=== PATIENT | female | born 1955 | race Caucasian/White ===

== ENCOUNTER → 2017-06-28 | Outpatient (CLI) | payer OTHER ==
[~2017-06-28] MED LIST: IBUP200C8 PO
== END | disposition home or self-care (01) ==
LOC: CFH 08:48
PROVIDERS: ATTEND Obstetrics & Gynecology Maternal & Fetal Medicine
DX: Z12.31 Encounter for screening mammogram for malignant neoplasm of breast (principal); N64.89 Other specified disorders of breast
CPT/HCPCS: 77067

== ENCOUNTER → 2017-06-29 | Outpatient (CLI) | payer OTHER ==
[~2017-06-29] MED LIST changes: +LEG CRAMPS PO
[2017-06-29 12:31] LABS: BASOPHILS # (AUTO) 0.03 x10^3/uL (0-0.1); BASOPHILS % (AUTO) 0 % (0-1); EOSINOPHILS % (AUTO) 4 % (1-7); LYMPHOCYTES # (AUTO) 1.77 x10^3/uL (1-3.4); LYMPHOCYTES % (AUTO) 22 % (22-44); MD NO; MEAN CORPUSCULAR HEMOGLOBIN 24.3 pg (27.0-34.8); MEAN CORPUSCULAR HGB CONC 31.5 g/dL (32.4-35.8); MONOCYTES # (AUTO) 0.46 x10^3/uL (0.2-0.8); MONOCYTES % (AUTO) 6 % (2-9); NEUTROPHILS # (AUTO) 5.52 x10^3/uL (1.8-6.8); NEUTROPHILS % (AUTO) 68 % (42-75); PLATELET COUNT 250 x10^3/uL (130-400); RED BLOOD COUNT 4.71 x10^6/uL (3.82-5.3); RED CELL DISTRIBUTION WIDTH 17.5 % (9.6-15.2)
[2017-06-29 12:42] LABS: ALANINE AMINOTRANSFERASE 27 U/L (12-78); ALBUMIN 3.3 g/dL (3.4-5.0); ANION GAP 5 mmol/L (5-15); CHLORIDE 107 mmol/L (98-107); CREATININE 0.72 mg/dL (0.55-1.02)
[2017-06-29 12:45] LABS: ALKALINE PHOSPHATASE 70 U/L (45-117); BILIRUBIN,TOTAL 0.4 mg/dL (0.2-1.0)
[2017-06-29 12:52] LABS: INTERNATIONAL NORMALIZED RATIO 0.94 (0.93-1.1); PROTHROMBIN TIME 9.7 Seconds (9.6-11.5)
== END | disposition home or self-care (01) ==
LOC: STAR 11:29
PROVIDERS: ATTEND Specialist
DX: Z01.818 Encounter for other preprocedural examination (principal); C54.1 Malignant neoplasm of endometrium
CPT/HCPCS: 36415; 71046; 80053; 85025; 85610; 85730; 93005

== ENCOUNTER 2017-07-03 06:20 | Day surgery (SDC) | payer OTHER ==
[~2017-07-03] VITALS: Ht 170.2 cm; Wt 134.0 kg
[~2017-07-03 06:20] MED LIST changes: -LEG CRAMPS PO
[2017-07-03] MEDS ORDERED: EPINEPHRINE 1 MG/ML, 1ML ONE (06:54)
[2017-07-03] MEDS ORDERED: INDOCYANINE GREEN 25 MG VIAL ONE ×2 (06:54→08:29)
[2017-07-03] MEDS ORDERED: HEPARIN 1,000 UNITS/ML, 10ML ONE (06:54)
[2017-07-03] MEDS ORDERED: BUPIVACAINE/PF 0.25% ONE (06:54)
[2017-07-03] MEDS ORDERED: THROMBIN 5,000 UNIT VIAL TP ONE (06:55)
[2017-07-03] MEDS ORDERED: LIDOCAINE-MPF 1%, 2ML ONE (06:58)
[2017-07-03 07:07] VITALS: BP 186/84
[2017-07-03] MEDS ORDERED: LEG CRAMPS PO (07:11)
[2017-07-03] MEDS ORDERED: LACTATED RINGERS 1,000 ML IV SCH (07:12)
[2017-07-03] MEDS ORDERED: MIDAZOLAM 1 MG/ML, 2ML ONE (07:18)
[2017-07-03] MEDS ORDERED: FENTANYL PF 250 MCG/5ML ONE (07:18)
[2017-07-03] MEDS ORDERED: LIDOCAINE 1%, 2ML SQ PRN (07:30)
[2017-07-03] MEDS ORDERED: CEFAZOLIN 1,000 MG ONE ×2 (07:34→08:44)
[2017-07-03] MEDS ORDERED: NEOSTIGMINE 1 MG/ML, 10ML ONE (08:44)
[2017-07-03] MEDS ORDERED: ROCURONIUM 10 MG/ML,10ML ONE (08:44)
[2017-07-03] MEDS ORDERED: PROPOFOL 10 MG/ML, 20ML ONE (08:44)
[2017-07-03] MEDS ORDERED: SUCCINYLCHOLINE 20 MG/ML, 10ML ONE (08:44)
[2017-07-03] MEDS ORDERED: GLYCOPYRROLATE 0.2MG/1ML, 5ML ONE (08:44)
[2017-07-03] MEDS ORDERED: ONDANSETRON 2MG/ML, 2ML ONE (08:44)
[2017-07-03] MEDS ORDERED: DEXAMETHASONE 4 MG/ML, 1ML ONE (08:44)
[2017-07-03] MEDS ORDERED: HYDROmorphone 2 MG/ML, 1ML ONE (09:34)
[2017-07-03] MEDS ORDERED: DIAZEPAM 5 MG/ML, 2ML IVPush PRN (10:30)
[2017-07-03] MEDS ORDERED: PROMETHAZINE 25 MG/ML, 1ML IV PRN (10:30)
[2017-07-03] MEDS ORDERED: hydrALAzine 20 MG/ML, 1ML IV PRN (10:30)
[2017-07-03] MEDS ORDERED: OXYcodone 5 MG/5 ML ORAL.SOL UDC PO PRN (10:30)
[2017-07-03] MEDS ORDERED: MEPERIDINE/PF 25MG/0.5ML IVPush PRN (10:30)
[2017-07-03] MEDS ORDERED: ONDANSETRON 2MG/ML, 2ML IVPush PRN (10:30)
[2017-07-03] MEDS ORDERED: METOPROLOL 1 MG/ML, 5ML IV PRN (10:30)
[2017-07-03] MEDS ORDERED: MIDAZOLAM 1 MG/ML, 2ML IV PRN (10:30)
[2017-07-03] MEDS ORDERED: HYDROcodone/APAP 7.5-325MG/15ML UDC PO PRN (10:30)
[2017-07-03] MEDS ORDERED: LABETALOL 5MG/ML, 20ML IV PRN (10:30)
[2017-07-03] MEDS ORDERED: ACETAMINOPHEN 325 MG TABLET PO PRN (10:30)
[2017-07-03] MEDS ORDERED: ALBUTEROL SULFATE 2.5 MG/3 ML NPPB PRN (10:30)
[2017-07-03] MEDS ORDERED: HYDROmorphone 1 MG/ML, 1ML IV PRN (10:30)
[2017-07-03] MEDS ORDERED: PROMETHAZINE 12.5 MG SUPP PR PRN (10:30)
[2017-07-03] MEDS ORDERED: EPHEDRINE 50 MG/ML, 1ML IVPush PRN (10:30)
[2017-07-03] MEDS ORDERED: ALBUTEROL/IPRATROPIUM 2.5MG/0.5MG, 3 ML NPPB PRN (10:30)
[2017-07-03] MEDS ORDERED: FENTANYL PF 100 MCG/2ML ONE (12:04)
[2017-07-03] MEDS ORDERED: ACETAMINOPHEN 650 MG/20.3 ML UDC ONE (12:04)
[2017-07-03] MEDS ORDERED: OXYcodone 5 MG/5 ML ORAL.SOL UDC ONE (12:04)
[2017-07-03] MEDS: FENTANYL PF 100 MCG/2ML IV PRN ×4 (12:10→12:39)
[2017-07-03] MEDS ORDERED: KETOROLAC 30 MG/1 ML ONE (14:00)
[2017-07-03] MEDS ORDERED: KETOROLAC 30 MG/1 ML IVPush ONE (14:00)
[2017-07-03] MEDS ORDERED: OXYcodone/APAP 7.5/325MG TABLET PO ONE (14:00)
== END 2017-07-03 18:10 | disposition home or self-care (01) ==
LOC: OUT 06:20
PROVIDERS: ATTEND Specialist
DX: C54.1 Malignant neoplasm of endometrium (principal); D25.9 Leiomyoma of uterus, unspecified; I10 Essential (primary) hypertension; N95.0 Postmenopausal bleeding; Z88.5 Allergy status to narcotic agent; Z88.0 Allergy status to penicillin
CPT/HCPCS: 36415; 38500; 38900; 58571; 74018; 86850; 86900; 86923; 88305; 88307; 88333; J0171; J0330; J0690; J1100; J1170; J1885; J2250; J2405; J2704; J2710; J3010; J3490; J7120; S2900; J1644

== ENCOUNTER → 2018-01-25 | Outpatient (CLI) | payer OTHER ==
[~2018-01-25] MED LIST changes: +LEG CRAMPS PO
== END | disposition home or self-care (01) ==
LOC: ROC 07:52
PROVIDERS: ATTEND Radiology Radiation Oncology
DX: C54.1 Malignant neoplasm of endometrium (principal)
CPT/HCPCS: 99212; G0463

== ENCOUNTER → 2018-03-28 | Outpatient (CLI) | payer OTHER ==
[~2018-03-28] MED LIST changes: +OMNIPAQUE 350 MG/ML, 150 ML BOTTLE ONE
== END | disposition home or self-care (01) ==
LOC: CFH 08:09
PROVIDERS: ATTEND Specialist
DX: K80.20 Calculus of gallbladder without cholecystitis without obstruction (principal); K57.90 Diverticulosis of intestine, part unspecified, without perforation or abscess without bleeding
CPT/HCPCS: 74177; Q9967

== ENCOUNTER 2018-04-30 18:42 | Day surgery (SDC) | payer OTHER ==
[~2018-04-30] VITALS: Ht 170.2 cm; Wt 128.9 kg
[~2018-04-30 18:42] MED LIST changes: -OMNIPAQUE 350 MG/ML, 150 ML BOTTLE ONE
[2018-04-30 19:46] LABS: BASOPHILS # (AUTO) 0.02 x10^3/uL (0-0.1); BASOPHILS % (AUTO) 0 % (0-1); EOSINOPHILS # (AUTO) 0.22 x10^3/uL (0-0.4); EOSINOPHILS % (AUTO) 3 % (1-7); LYMPHOCYTES # (AUTO) 1.63 x10^3/uL (1-3.4); LYMPHOCYTES % (AUTO) 24 % (22-44); MD NO; MEAN CORPUSCULAR HEMOGLOBIN 30.7 pg (27.0-34.8); MEAN CORPUSCULAR HGB CONC 34.3 g/dL (32.4-35.8); MEAN CORPUSCULAR VOLUME 89.4 fL (80-100); MEAN PLATELET VOLUME 8.1 fL (7.4-10.4); MONOCYTES # (AUTO) 0.49 x10^3/uL (0.2-0.8); MONOCYTES % (AUTO) 7 % (2-9); NEUTROPHILS # (AUTO) 4.55 x10^3/uL (1.8-6.8); NEUTROPHILS % (AUTO) 66 % (42-75); PLATELET COUNT 195 x10^3/uL (130-400); RED BLOOD COUNT 5.18 x10^6/uL (3.82-5.3); RED CELL DISTRIBUTION WIDTH 14.5 % (9.6-15.2)
--- NOTE | 2018-04-30 19:46 | NUR ---
pt ambulated to room from salbador, sera cup given by al torres
--- NOTE | 2018-04-30 19:48 | NUR ---
PT. AMBULATORY TO BR WITH SLOW BUT STEADY GAIT TO PROVIDE URINE SAMPLE. WARM JOHN AND GOWN PROVIDED.
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
[2018-04-30 19:52] LABS: ALANINE AMINOTRANSFERASE 27 U/L (12-78); ALBUMIN 3.8 g/dL (3.4-5.0); ANION GAP 7 mmol/L (5-15); CALCIUM 8.8 mg/dL (8.5-10.1); CHLORIDE 109 mmol/L (98-107); CREATININE 0.93 mg/dL (0.55-1.02)
[2018-04-30 19:55] LABS: ALKALINE PHOSPHATASE 77 U/L (45-117); BILIRUBIN,TOTAL 0.5 mg/dL (0.2-1.0); TOTAL PROTEIN 7.7 g/dL (6.4-8.2)
--- NOTE | 2018-04-30 20:14 | NUR ---
VS UPDATED. PT. DENIES NEEDS. AWARE OF NEED FOR UA STILL. UPDATED ON PLAN FOR CT.
--- NOTE | 2018-04-30 20:37 | NUR ---
PT. RETURN TO ROOM FROM CT AT THIS TIME.
--- NOTE | 2018-04-30 20:56 | NUR ---
PT. CHART UP FOR RECHECK BY MACKENZIE.
[2018-04-30] MEDS ORDERED: SODIUM CHLORIDE 0.9% 1,000 ML IV ONE (21:10)
--- NOTE | 2018-04-30 21:24 | NUR ---
DR. ANDRES WAS AT BS TO DISCUSS POC WITH PT.
--- NOTE | 2018-04-30 21:25 | NUR ---
IV ACCESS OBTAINED. PT. TO BE ADMIT AND HAVE SX TO REMOVE GALLBLADDER IN THE AM. PT. REQUESTING TO CALL [facility]OSS PRIOR TO IV PAIN MEDS.
[2018-04-30] MEDS ORDERED: SODIUM CHLORIDE FLUSH 10ML SYR IVF PRN (21:30)
[2018-04-30] MEDS ORDERED: MORPHINE SULFATE 4 MG/ML, 1ML IVPush PRN (21:30)
[2018-04-30] MEDS ORDERED: ONDANSETRON 2MG/ML, 2ML IVPush PRN (21:30)
[2018-04-30] MEDS ORDERED: ONDANSETRON 2MG/ML, 2ML ONE (21:34)
[2018-04-30] MEDS ORDERED: MORPHINE SULFATE 4 MG/ML, 1ML ONE (21:35)
--- NOTE | 2018-04-30 21:36 | NUR ---
RECEIVED REPORT FROM BRENDAN MAYES.
--- NOTE | 2018-04-30 21:44 | NUR ---
DR. BAKER AT BEDSIDE.
--- NOTE | 2018-04-30 22:18 | NUR ---
REPORT GIVEN TO AJ, RECEIVING RN. ALL QUESTIONS ANSWERED. AWAITING PT TRANSPORT.
[2018-04-30] MEDS ORDERED: DIPHENHYDRAMINE 50 MG/ML, 1ML IV PRN (23:00)
[2018-04-30] MEDS ORDERED: ENALAPRILAT 1.25 MG/ML, 2ML IV PRN (23:00)
[2018-04-30] MEDS ORDERED: hydrALAzine 20 MG/ML, 1ML IV PRN (23:00)
[2018-04-30] MEDS ORDERED: ONDANSETRON 2MG/ML, 2ML IV PRN (23:00)
[2018-04-30] MEDS ORDERED: DIPHENHYDRAMINE 25 MG CAPSULE PO PRN (23:00)
[2018-04-30] MEDS ORDERED: ACETAMINOPHEN 325 MG TABLET PO PRN (23:00)
[2018-04-30] MEDS ORDERED: ACETAMINOPHEN 650 MG SUPP PR PRN (23:00)
[2018-04-30] MEDS: ENOXAPARIN 40 MG/0.4 ML SQ SCH (23:28)
[2018-04-30] MEDS ORDERED: HYDROmorphone 2 MG/ML, 1ML IVPush PRN (23:30)
[2018-05-01 00:52] VITALS: BP 146/75
[2018-05-01] MEDS: HYDROcodone/APAP 5/325 TABLET PO PRN ×4 (01:50→21:05)
[2018-05-01 02:29] VITALS: BP 108/69
[2018-05-01] MEDS: D5%-0.45NACL+KCL 20MEQ 1,000 ML IV SCH ×2 (06:04→18:28)
[2018-05-01 07:08] VITALS: BP 137/63
[2018-05-01] MEDS ORDERED: BUPIVACAINE/PF-EPI 0.5% 1:200K ONE (13:38)
[2018-05-01 14:12] VITALS: BP 134/76
[2018-05-01] MEDS ORDERED: FENTANYL PF 250 MCG/5ML ONE (14:16)
[2018-05-01] MEDS ORDERED: ACETAMINOPHEN 325 MG TABLET PO PRN (14:30)
[2018-05-01] MEDS ORDERED: PROMETHAZINE 25 MG/ML, 1ML IV PRN (14:30)
[2018-05-01] MEDS ORDERED: OXYcodone 5 MG/5 ML ORAL.SOL UDC PO PRN (14:30)
[2018-05-01] MEDS ORDERED: MEPERIDINE/PF 25MG/0.5ML IVPush PRN (14:30)
[2018-05-01] MEDS ORDERED: HYDROmorphone 2 MG/ML, 1ML IVPush PRN (14:30)
[2018-05-01] MEDS ORDERED: DIAZEPAM 5 MG/ML, 2ML IVPush PRN (14:30)
[2018-05-01] MEDS ORDERED: ONDANSETRON ODT 8 MG PO PRN (14:30)
[2018-05-01] MEDS ORDERED: ONDANSETRON 2MG/ML, 2ML IV PRN (14:30)
[2018-05-01] MEDS ORDERED: DEXAMETHASONE 4 MG/ML, 1ML ONE (14:51)
[2018-05-01] MEDS ORDERED: ROCURONIUM 10 MG/ML,10ML ONE (14:51)
[2018-05-01] MEDS ORDERED: ONDANSETRON 2MG/ML, 2ML ONE (14:51)
[2018-05-01] MEDS ORDERED: CEFAZOLIN 1,000 MG ONE (14:51)
[2018-05-01] MEDS ORDERED: SUCCINYLCHOLINE 20 MG/ML, 10ML ONE (14:51)
[2018-05-01] MEDS ORDERED: PROPOFOL 10 MG/ML, 20ML ONE (14:51)
[2018-05-01] MEDS ORDERED: GLYCOPYRROLATE 0.2MG/1ML, 5ML ONE (14:51)
[2018-05-01] MEDS ORDERED: SUGAMMADEX 200 MG/2 ML IVPush ONE (15:09)
[2018-05-01] MEDS ORDERED: LABETALOL 20 MG/4 ML ONE (15:41)
[2018-05-01] MEDS: LABETALOL 5MG/ML, 20ML IV PRN ×2 (15:42→15:50)
[2018-05-01] MEDS: FENTANYL PF 100 MCG/2ML IV PRN ×4 (15:45→16:30)
[2018-05-01] MEDS ORDERED: FENTANYL PF 100 MCG/2ML ONE ×2 (15:49→16:45)
[2018-05-01] MEDS ORDERED: OXYcodone 5 MG/5 ML ORAL.SOL UDC ONE (15:49)
[2018-05-01] MEDS ORDERED: hydrALAzine 20 MG/ML, 1ML ONE (16:08)
[2018-05-01 19:06] LABS: MICROSCOPIC NOT IND
[2018-05-01 19:10] LABS: CULTURE INDICATED? NO
[2018-05-01 20:00] VITALS: BP 136/74
[2018-05-01] MEDS: ENOXAPARIN 40 MG/0.4 ML SQ SCH (22:33)
[2018-05-02 00:15] VITALS: BP 130/79
[2018-05-02] MEDS: D5%-0.45NACL+KCL 20MEQ 1,000 ML IV SCH ×2 (03:30→11:39)
[2018-05-02 07:18] VITALS: BP 129/71
[2018-05-02] MEDS ORDERED: HYDR-3240 PO (10:16)
[2018-05-02 12:05] VITALS: BP 150/73
== END 2018-05-02 18:07 | disposition home or self-care (01) ==
LOC: ED 20:29 → EDIP 21:10 → UNDOADMIN 21:10 → SDC 21:10 → 4NOR 22:29 → EDIP 22:29 → SDC 05-02 18:07 → UNDODISIN 05-02 18:33
PROVIDERS: ATTEND Surgery
DX: K80.10 Calculus of gallbladder with chronic cholecystitis without obstruction (principal); E66.01 Morbid (severe) obesity due to excess calories; Z72.0 Tobacco use; Z68.41 Body mass index [BMI] 40.0-44.9, adult; Z82.49 Family history of ischemic heart disease and other diseases of the circulatory system; Z85.42 Personal history of malignant neoplasm of other parts of uterus; Z85.43 Personal history of malignant neoplasm of ovary; Z90.710 Acquired absence of both cervix and uterus; Z88.0 Allergy status to penicillin; Z88.5 Allergy status to narcotic agent
CPT/HCPCS: 36415; 47562; 74176; 76700; 80053; 81003; 83690; 85025; 88304; 90656; 93005; 96361; 96374; 99285; J0330; J0360; J0690; J1100; J1650; J2405; J2704; J3010; J3480; J3490; J7030; G0378

== ENCOUNTER 2018-05-14 14:02 | Emergency (ER) | payer OTHER ==
[~2018-05-14] VITALS: Ht 170.2 cm; Wt 130.7 kg
[~2018-05-14 14:02] MED LIST changes: +HYDR-3240 PO
[2018-05-14 14:42] LABS: BASOPHILS # (AUTO) 0.01 x10^3/uL (0-0.1); BASOPHILS % (AUTO) 0 % (0-1); EOSINOPHILS # (AUTO) 0.23 x10^3/uL (0-0.4); EOSINOPHILS % (AUTO) 3 % (1-7); LYMPHOCYTES # (AUTO) 1.17 x10^3/uL (1-3.4); LYMPHOCYTES % (AUTO) 15 % (22-44); MD NO; MEAN CORPUSCULAR VOLUME 90.9 fL (80-100); MEAN PLATELET VOLUME 8.7 fL (7.4-10.4); MONOCYTES # (AUTO) 0.35 x10^3/uL (0.2-0.8); MONOCYTES % (AUTO) 4 % (2-9); NEUTROPHILS % (AUTO) 78 % (42-75); PLATELET COUNT 194 x10^3/uL (130-400); RED BLOOD COUNT 4.96 x10^6/uL (3.82-5.3); RED CELL DISTRIBUTION WIDTH 14.6 % (9.6-15.2)
[2018-05-14 14:56] LABS: ALANINE AMINOTRANSFERASE 28 U/L (12-78); ALBUMIN 3.6 g/dL (3.4-5.0); ANION GAP 7 mmol/L (5-15); CALCIUM 8.4 mg/dL (8.5-10.1); CHLORIDE 111 mmol/L (98-107); CREATININE 1.03 mg/dL (0.55-1.02)
[2018-05-14 14:58] LABS: ALKALINE PHOSPHATASE 77 U/L (45-117); BILIRUBIN,TOTAL 0.5 mg/dL (0.2-1.0); TOTAL PROTEIN 6.7 g/dL (6.4-8.2)
[2018-05-14 16:14] LABS: MICROSCOPIC AUTO
[2018-05-14 16:17] LABS: CULTURE INDICATED? YES
[2018-05-14 16:22] VITALS: BP 155/80
--- NOTE | 2018-05-14 16:22 | NUR ---
DR BILLS UPDATING PT ON POC
== END 2018-05-14 16:44 | disposition home or self-care (01) ==
LOC: ED 16:30
DX: N30.00 Acute cystitis without hematuria (principal); Z90.89 Acquired absence of other organs; Z90.710 Acquired absence of both cervix and uterus; Z85.43 Personal history of malignant neoplasm of ovary
CPT/HCPCS: 36415; 76700; 80053; 81001; 83690; 85025; 87086; 99284

== ENCOUNTER → 2018-07-19 | Outpatient (CLI) | payer OTHER | END | disposition home or self-care (01) | LOC: ROC 07:58 | PROVIDERS: ATTEND Radiology Radiation Oncology | DX: Z08 Encounter for follow-up examination after completed treatment for malignant neoplasm (principal); C54.1 Malignant neoplasm of endometrium | CPT/HCPCS: 99212; G0463 ==

== ENCOUNTER 2019-06-18 22:39 | Emergency (ER) | payer OTHER ==
[~2019-06-18] VITALS: Ht 170.2 cm; Wt 136.2 kg
[2019-06-18] MEDS ORDERED: ONDANSETRON 2MG/ML, 2ML IVPush ONE (23:00)
[2019-06-18] MEDS ORDERED: MORPHINE SULFATE 4 MG/ML, 1ML IVPush PRN (23:00)
[2019-06-18] MEDS ORDERED: MORPHINE SULFATE 4 MG/ML, 1ML ONE (23:24)
[2019-06-18] MEDS ORDERED: ONDANSETRON 2MG/ML, 2ML ONE (23:24)
--- NOTE | 2019-06-18 23:42 | NUR ---
Patient presents to ER c/o left side abd pain, N/V/D x1 week. Patient states tonight she also experienced an extreme RUCKER and photosensitivity. She is not currently experiencing the RUCKER. Her last bout of diarrhea and vomiting was earlier tonight around 1999. Patient denies fevers. Patient is in NAD. Respirations even and unlabored.
[2019-06-18 23:49] LABS: BASOPHILS # (AUTO) 0.02 x10^3/uL (0-0.1); BASOPHILS % (AUTO) 0 % (0-1); EOSINOPHILS # (AUTO) 0.25 x10^3/uL (0-0.4); EOSINOPHILS % (AUTO) 4 % (1-7); LYMPHOCYTES # (AUTO) 1.52 x10^3/uL (1-3.4); LYMPHOCYTES % (AUTO) 21 % (22-44); MD NO; MEAN CORPUSCULAR HEMOGLOBIN 30.7 pg (27.0-34.8); MEAN CORPUSCULAR HGB CONC 33.6 g/dL (32.4-35.8); MEAN CORPUSCULAR VOLUME 91.2 fL (80-100); MEAN PLATELET VOLUME 8.6 fL (7.4-10.4); MONOCYTES # (AUTO) 0.48 x10^3/uL (0.2-0.8); MONOCYTES % (AUTO) 7 % (2-9); NEUTROPHILS # (AUTO) 4.86 x10^3/uL (1.8-6.8); NEUTROPHILS % (AUTO) 68 % (42-75); PLATELET COUNT 195 x10^3/uL (130-400); RED BLOOD COUNT 5.13 x10^6/uL (3.82-5.3); RED CELL DISTRIBUTION WIDTH 14.2 % (9.6-15.2)
[2019-06-18 23:51] LABS: MICROSCOPIC INDICATED
[2019-06-18 23:52] LABS: CULTURE INDICATED? YES
[2019-06-18 23:57] LABS: ALANINE AMINOTRANSFERASE 28 U/L (12-78); ALBUMIN 3.7 g/dL (3.4-5.0); ANION GAP 8 mmol/L (5-15); CALCIUM 8.9 mg/dL (8.5-10.1); CHLORIDE 108 mmol/L (98-107); CREATININE 0.88 mg/dL (0.55-1.02)
[2019-06-19] LABS: ALKALINE PHOSPHATASE 84 U/L (45-117); BILIRUBIN,TOTAL 0.5 mg/dL (0.2-1.0); TOTAL PROTEIN 7.6 g/dL (6.4-8.2)
[2019-06-19] MEDS ORDERED: OMNIPAQUE 350 MG/ML, 100ML BOTTLE ONE (00:15)
--- NOTE | 2019-06-19 00:16 | NUR ---
Patient in CT.
--- NOTE | 2019-06-19 00:55 | NUR ---
Pt report from Aury melendez. This rn to assume care of pt. Pt tbdc. Awaiting d/c instructions.
[2019-06-19 01:01] VITALS: BP 160/79
== END 2019-06-19 01:03 | disposition home or self-care (01) ==
LOC: ED 06-19 00:47
DX: R10.32 Left lower quadrant pain (principal); R51 Headache; F17.200 Nicotine dependence, unspecified, uncomplicated; Z90.49 Acquired absence of other specified parts of digestive tract; Z90.710 Acquired absence of both cervix and uterus
CPT/HCPCS: 36415; 74177; 80053; 81001; 83690; 85025; 87086; 96374; 96375; 99284; J2270; J2405; Q9967

== ENCOUNTER → 2019-07-19 | Outpatient (CLI) | payer OTHER | END | disposition home or self-care (01) | LOC: ROC 07:00 | PROVIDERS: ATTEND Radiology Radiation Oncology | DX: C54.1 Malignant neoplasm of endometrium (principal) | CPT/HCPCS: 99212; G0463 ==

== ENCOUNTER 2019-10-25 08:22 | Outpatient (CLI) | payer OTHER ==
[~2019-10-25 08:22] MED LIST changes: +HYDR-3343 PO; +LEVO750T26 PO
== END 2019-10-25 23:59 | disposition home or self-care (01) ==
LOC: ROC 08:22
PROVIDERS: ATTEND Radiology Radiation Oncology
DX: Z08 Encounter for follow-up examination after completed treatment for malignant neoplasm (principal); C54.1 Malignant neoplasm of endometrium; E66.9 Obesity, unspecified; I10 Essential (primary) hypertension; K57.90 Diverticulosis of intestine, part unspecified, without perforation or abscess without bleeding; Z90.710 Acquired absence of both cervix and uterus; Z90.49 Acquired absence of other specified parts of digestive tract; Z79.899 Other long term (current) drug therapy; Z87.891 Personal history of nicotine dependence; Z85.42 Personal history of malignant neoplasm of other parts of uterus
CPT/HCPCS: 99212; G0463

== ENCOUNTER 2019-11-05 11:36 | Day surgery (SDC) | payer OTHER ==
[~2019-11-05] VITALS: Ht 170.2 cm; Wt 121.5 kg
[2019-11-05] MEDS ORDERED: LACTATED RINGERS 1,000 ML IV SCH (12:09)
[2019-11-05] MEDS ORDERED: GABA300C PO (12:13)
[2019-11-05] MEDS ORDERED: HYDR-3240 PO (12:13)
[2019-11-05] MEDS ORDERED: HYDR-3343 PO (12:13)
[2019-11-05] MEDS ORDERED: NAPR220C2 PO (12:13)
[2019-11-05 12:15] VITALS: BP 163/112
[2019-11-05] MEDS ORDERED: PLEASE ENTER HEIGHT AND WEIGHT MC SCH (12:30)
[2019-11-05] MEDS ORDERED: CHLORHEXIDINE 15 ML UDC MM ONE (12:30)
[2019-11-05] MEDS ORDERED: PROPOFOL 10 MG/ML, 20ML ONE (13:20)
[2019-11-05] MEDS ORDERED: SUCCINYLCHOLINE 20 MG/ML, 10ML ONE (13:20)
[2019-11-05] MEDS ORDERED: ROCURONIUM 10MG/ML,5ML ONE (13:20)
[2019-11-05] MEDS ORDERED: LIDOCAINE-MPF 2% ,5ML ONE (13:40)
[2019-11-05] MEDS ORDERED: CEFAZOLIN 1,000 MG ONE (13:40)
[2019-11-05] MEDS ORDERED: MIDAZOLAM 1 MG/ML, 2ML ONE (13:41)
[2019-11-05] MEDS ORDERED: FENTANYL PF 100 MCG/2ML ONE ×2 (13:42→16:50)
[2019-11-05] MEDS ORDERED: CIPROFLOXACIN/PMX 400MG/200ML 200 ML ONE (15:04)
[2019-11-05] MEDS ORDERED: ACETAMINOPHEN 325 MG TABLET PO PRN (15:30)
[2019-11-05] MEDS ORDERED: HYDROmorphone 1 MG/ML, 1ML INJ IVPush PRN (15:30)
[2019-11-05] MEDS ORDERED: FENTANYL PF 100 MCG/2ML IV PRN (15:30)
[2019-11-05] MEDS ORDERED: SUGAMMADEX 200 MG/2 ML IVPush ONE (16:05)
[2019-11-05] MEDS ORDERED: ONDANSETRON 2MG/ML, 2ML ONE (16:41)
[2019-11-05] MEDS ORDERED: HYDROmorphone 1 MG/ML, 1ML INJ ONE (16:54)
[2019-11-05] MEDS ORDERED: ONDANSETRON 2MG/ML, 2ML IVPush PRN (17:00)
[2019-11-05] MEDS ORDERED: KETOROLAC 30 MG/1 ML ONE (17:34)
[2019-11-05] MEDS ORDERED: morphine SULFATE 10 MG/ML, 1ML ONE (17:49)
[2019-11-05] MEDS ORDERED: morphine SULFATE 10 MG/ML, 1ML IV PRN (18:00)
[2019-11-05] MEDS ORDERED: KETOROLAC 30 MG/1 ML IV PRN (18:00)
[2019-11-05] MEDS ORDERED: ONDANSETRON 2MG/ML, 2ML IV PRN (18:00)
== END 2019-11-05 18:35 | disposition home or self-care (01) ==
LOC: OUT 11:36
PROVIDERS: ATTEND Urology
DX: N20.2 Calculus of kidney with calculus of ureter (principal); Z11.59 Encounter for screening for other viral diseases; T83.192A Other mechanical complication of indwelling ureteral stent, initial encounter; I10 Essential (primary) hypertension; Z79.899 Other long term (current) drug therapy; Z85.42 Personal history of malignant neoplasm of other parts of uterus; Z87.440 Personal history of urinary (tract) infections; Z88.0 Allergy status to penicillin; Z88.5 Allergy status to narcotic agent; Z88.8 Allergy status to other drugs, medicaments and biological substances; Y83.8 Other surgical procedures as the cause of abnormal reaction of the patient, or of later complication, without mention of misadventure at the time of the procedure
CPT/HCPCS: 36415; 52353; 74018; 87635; J0330; J0690; J0744; J1885; J2250; J2270; J2405; J2704; J3010; J7120; 76000

== ENCOUNTER 2019-11-12 06:51 | Day surgery (SDC) | payer OTHER ==
[~2019-11-12] VITALS: Ht 170.2 cm; Wt 121.0 kg
[~2019-11-12 06:51] MED LIST changes: +GABA300C PO; +NAPR220C2 PO
[2019-11-12 09:01] VITALS: BP 162/83
[2019-11-12] MEDS ORDERED: CHLORHEXIDINE 15 ML UDC MM STA (09:06)
[2019-11-12] MEDS ORDERED: SILVER SULF. CRM 1% , 25GM ONE (09:59)
[2019-11-12] MEDS ORDERED: EPINEPHRINE 1 MG/ML, 1ML ONE (09:59)
[2019-11-12] MEDS ORDERED: BUPIVACAINE/PF 0.25% ONE (09:59)
[2019-11-12] MEDS ORDERED: LACTATED RINGERS 1,000 ML IV SCH (10:00)
[2019-11-12 10:27] LABS: INTERNATIONAL NORMALIZED RATIO 0.96 (0.93-1.1); PROTHROMBIN TIME 10.2 Seconds (9.6-11.5)
[2019-11-12] MEDS ORDERED: CEFOTETAN PMX 2GM/50ML 50 ML IV ONE (10:30)
[2019-11-12] MEDS ORDERED: MIDAZOLAM 1 MG/ML, 2ML ONE (11:52)
[2019-11-12] MEDS ORDERED: FENTANYL PF 100 MCG/2ML ONE (11:52)
[2019-11-12] MEDS ORDERED: DEXAMETHASONE 4 MG/ML, 1ML ONE (11:57)
[2019-11-12] MEDS ORDERED: ONDANSETRON 2MG/ML, 2ML ONE (11:57)
[2019-11-12] MEDS ORDERED: PROPOFOL 10 MG/ML, 20ML ONE (11:57)
[2019-11-12] MEDS ORDERED: DIAZEPAM 5 MG/ML, 2ML IVPush PRN (12:00)
[2019-11-12] MEDS ORDERED: hydrALAzine 20 MG/ML, 1ML IV PRN (12:00)
[2019-11-12] MEDS ORDERED: FENTANYL PF 100 MCG/2ML IV PRN (12:00)
[2019-11-12] MEDS ORDERED: MIDAZOLAM 1 MG/ML, 2ML IV PRN (12:00)
[2019-11-12] MEDS ORDERED: ONDANSETRON 2MG/ML, 2ML IVPush PRN (12:00)
[2019-11-12] MEDS ORDERED: ACETAMINOPHEN 325 MG TABLET PO PRN (12:00)
[2019-11-12] MEDS ORDERED: LABETALOL 5MG/ML, 20ML IV PRN (12:00)
[2019-11-12] MEDS ORDERED: ALBUTEROL SULFATE 2.5 MG/3 ML NPPB PRN (12:00)
[2019-11-12] MEDS ORDERED: EPHEDRINE 50 MG/ML, 1ML IVPush PRN (12:00)
[2019-11-12] MEDS ORDERED: MEPERIDINE/PF 25MG/0.5ML IVPush PRN (12:00)
[2019-11-12] MEDS ORDERED: PROMETHAZINE 12.5 MG SUPP PR PRN (12:00)
[2019-11-12] MEDS ORDERED: HYDROmorphone 1 MG/ML, 1ML INJ IVPush PRN (12:00)
[2019-11-12] MEDS ORDERED: PROMETHAZINE 25 MG/ML, 1ML IVPush PRN (12:00)
[2019-11-12] MEDS ORDERED: OXYcodone 5 MG/5 ML ORAL.SOL UDC PO PRN (12:00)
== END 2019-11-12 14:05 | disposition home or self-care (01) ==
LOC: OUT 06:51
PROVIDERS: ATTEND Specialist
DX: C54.9 Malignant neoplasm of corpus uteri, unspecified (principal); E66.9 Obesity, unspecified; Z68.41 Body mass index [BMI] 40.0-44.9, adult; Z88.5 Allergy status to narcotic agent; Z88.0 Allergy status to penicillin; Z90.49 Acquired absence of other specified parts of digestive tract; Z98.890 Other specified postprocedural states; Z79.899 Other long term (current) drug therapy; Z88.8 Allergy status to other drugs, medicaments and biological substances; Z87.891 Personal history of nicotine dependence; Z82.49 Family history of ischemic heart disease and other diseases of the circulatory system; Z90.710 Acquired absence of both cervix and uterus
CPT/HCPCS: 36415; 57105; 85610; 85730; 88305; 88341; J0171; J1100; J2250; J2405; J2704; J3010; J3490; J7120

== ENCOUNTER 2019-12-13 07:12 | Outpatient (CLI) | payer OTHER | END 2019-12-13 23:59 | disposition home or self-care (01) | LOC: ROC 07:12 | PROVIDERS: ATTEND Radiology Radiation Oncology | DX: C54.1 Malignant neoplasm of endometrium (principal) | CPT/HCPCS: 99213; G0463 ==

== ENCOUNTER → 2019-12-17 | Outpatient (CLI) | payer OTHER ==
[~2019-12-17] MED LIST changes: +OMNIPAQUE 350 MG/ML, 100ML BOTTLE ONE
[2019-12-17 12:08] LABS: CREATININE 0.92 mg/dL (0.55-1.02)
== END | disposition home or self-care (01) ==
LOC: RAD 11:40
PROVIDERS: ATTEND Nurse Practitioner Acute Care
DX: C79.82 Secondary malignant neoplasm of genital organs (principal); C54.9 Malignant neoplasm of corpus uteri, unspecified; N20.0 Calculus of kidney; N28.1 Cyst of kidney, acquired; K57.90 Diverticulosis of intestine, part unspecified, without perforation or abscess without bleeding; M47.817 Spondylosis without myelopathy or radiculopathy, lumbosacral region
CPT/HCPCS: 36415; 71260; 74177; 82565; 84520; Q9967

== ENCOUNTER → 2020-01-02 | Outpatient (CLI) | payer OTHER ==
[~2020-01-02] MED LIST changes: -OMNIPAQUE 350 MG/ML, 100ML BOTTLE ONE
== END | disposition home or self-care (01) ==
LOC: PETCFH 10:03
PROVIDERS: ATTEND Radiology Radiation Oncology
DX: C54.1 Malignant neoplasm of endometrium (principal); I10 Essential (primary) hypertension
CPT/HCPCS: 78815; A9552

== ENCOUNTER 2020-03-18 06:49 | Outpatient (CLI) | payer OTHER | END 2020-03-18 23:59 | disposition home or self-care (01) | LOC: ROC 06:49 | PROVIDERS: ATTEND Radiology Radiation Oncology | DX: Z08 Encounter for follow-up examination after completed treatment for malignant neoplasm (principal); Z85.42 Personal history of malignant neoplasm of other parts of uterus; I10 Essential (primary) hypertension | CPT/HCPCS: 99213; G0463 ==

== ENCOUNTER 2020-05-14 07:01 | Outpatient (CLI) | payer OTHER | END 2020-05-14 23:59 | disposition home or self-care (01) | LOC: ROC 07:01 | PROVIDERS: ATTEND Radiology Radiation Oncology | DX: Z08 Encounter for follow-up examination after completed treatment for malignant neoplasm (principal); Z85.42 Personal history of malignant neoplasm of other parts of uterus | CPT/HCPCS: 99213; G0463 ==

== ENCOUNTER → 2020-07-29 | Outpatient (CLI) | payer OTHER ==
[~2020-07-29] MED LIST changes: +HYDR-1067 PO; -HYDR-3240 PO
== END | disposition home or self-care (01) ==
LOC: ROC 07:06
PROVIDERS: ATTEND Radiology Radiation Oncology
DX: C54.1 Malignant neoplasm of endometrium (principal)
CPT/HCPCS: 99213; G0463

== ENCOUNTER → 2020-10-07 | Outpatient (CLI) | payer OTHER ==
[~2020-10-07] MED LIST changes: -HYDR-1067 PO; +HYDR-2214 PO
== END | disposition home or self-care (01) ==
LOC: ROC 07:42
PROVIDERS: ATTEND Radiology Radiation Oncology
DX: Z08 Encounter for follow-up examination after completed treatment for malignant neoplasm (principal); Z85.42 Personal history of malignant neoplasm of other parts of uterus
CPT/HCPCS: 99213; G0463

== ENCOUNTER 2021-01-06 09:09 | Outpatient (CLI) | payer OTHER | END 2021-01-06 23:59 | disposition home or self-care (01) | LOC: ROC 09:09 | PROVIDERS: ATTEND Radiology Radiation Oncology | DX: Z08 Encounter for follow-up examination after completed treatment for malignant neoplasm (principal); C54.1 Malignant neoplasm of endometrium | CPT/HCPCS: 99212; G0463 ==